=== PATIENT | male | born 1955 | race Caucasian/White ===

== ENCOUNTER → 2016-10-10 | Outpatient (CLI) | payer OTHER ==
[~2016-10-10] MED LIST: ACETAMINOPHEN325 M1 PO; ALBUTEROL2.5 MG/31 INH; AMOXICILLIN 50500 M1 PO; ASPIRIN325 PO; BROVANA15 MCG/2 M INH; CARISOPRODOL 3350 MG PO; COLACE100 MG PO; FUROSEMIDE 40 M40 M1 PO; MICARDIS HCT 81 EAC1 PO; POLYOX WSR-3011 GM PO; PREDNISONE 10 M10 M1; PROAIR HFA8.5 GM INH; PULMICORT0.5 MG/2 M INH; VICODIN 5-5001 EACH PO; ZOCOR40 MG PO
== END ==
LOC: RAD 14:28
DX: J44.9 Chronic obstructive pulmonary disease, unspecified (principal); J98.11 Atelectasis; I51.7 Cardiomegaly

== ENCOUNTER → 2016-12-17 | Outpatient (CLI) | payer OTHER | LOC: RAD 12:40 | DX: I43 Cardiomyopathy in diseases classified elsewhere (principal); R06.02 Shortness of breath ==

== ENCOUNTER 2017-05-20 20:19 | Emergency (ER) | payer OTHER ==
[~2017-05-20] VITALS: Ht 170.2 cm; Wt 192.8 kg
== END 2017-05-20 23:32 | disposition home or self-care (01) ==
LOC: ER 20:19
DX: S91.112A Laceration without foreign body of left great toe without damage to nail, initial encounter (principal); I10 Essential (primary) hypertension; E78.5 Hyperlipidemia, unspecified; F17.210 Nicotine dependence, cigarettes, uncomplicated; F10.99 Alcohol use, unspecified with unspecified alcohol-induced disorder; W23.0XXA Caught, crushed, jammed, or pinched between moving objects, initial encounter; Y93.01 Activity, walking, marching and hiking; Y92.098 Other place in other non-institutional residence as the place of occurrence of the external cause; Y99.8 Other external cause status

== ENCOUNTER → 2017-09-18 | Outpatient (CLI) | payer OTHER ==
--- NOTE | ~2017-09-18 | 2DMMODE ---
[facility] [address] [place] [address] 2 D/M-MODE ECHOCARDIOGRAM Name: YOANAWES Milton Room #: REG CL [facility]#: [id number] Admission: 09/18/17 Attend Phys: Gary Beaver MD Discharge: Date of : 53 Date of Service: 09/18/17 1445 Report #: [id number] THIS REPORT FOR: //name// APPROVED REPORT Study performed: 09/18/2017 13:14:56 EXAM: Comprehensive 2D, Doppler, and color-flow Echocardiogram Patient Location: Echo lab Status: routine BSA: 2.74 BP: 147/81 mmHg Other Information Study Quality: Technically Difficult/Technically Limited Technically limited study due to body habitus. Unable to start IV to administer Optison. Indications COPD Hypertension/HDD 2D Dimensions RVDd: 31.99 mm LVEF(%): 51.14 (>50%) IVSd: 17.02 (7-11mm) LVOT Diam: 21.50 (18-24mm) LVDd: 48.40 mm PWd: 17.13 (7-11mm) Ascending Ao: 36.49 (22-36mm) LVDs: 35.76 (25-40mm) Aortic Root: 33.21 mm IVC: 27.00 mm Crowley's LVEF: 51.14 % Volumes Left Atrial Volume (Systole) Single Plane 4CH: 52.12 mL Single Plane 2CH: 70.94 mL LA ESV Index: 25.00 mL/m2 Aortic Valve AoV Peak Tyrese.: 1.31 m/s AO Peak Gr.: 6.82 mmHg LVOT Max P.93 mmHg LVOT Max V: 0.86 m/s SUZANNE Vmax: 2.38 cm2 Mitral Valve [facility] [address] [place] [address] 2 D/M-MODE ECHOCARDIOGRAM Name: YOANAWES Milton Room #: REG [facility]#: [id number] Admission: 09/18/17 Attend Phys: Gary Beaver MD Discharge: Date of : 53 Date of Service: 09/18/17 1445 Report #: [id number] MV Decel. Time: 198.82 ms MV E Max Tyrese.: 1.32 m/s IVRT: 87.66 ms Pulmonary Valve PV Peak Tyrese.: 0.94 m/s PV Peak Gr.: 3.56 mmHg Tricuspid Valve RAP Estimate: 10.00 mmHg Left Ventricle The left ventricle is normal size. Moderate concentric left ventricular hypertrophy. The left ventricular systolic function appears grossly normal. LVEF is >55%. This study is not technically sufficient to allow evaluation of the LV diastolic function due to atrial fibrillation. Right Ventricle The right ventricle is normal size. The right ventricular systolic function is normal. Atria The left atrium size is normal. Right atrium is mildly dilated. Aortic Valve The aortic valve is not well visualized. No aortic regurgitation is visualized. There is no aortic valvular stenosis. Mitral Valve The mitral valve is normal in structure. Trace to mild mitral regurgitation. No evidence of mitral valve stenosis. Tricuspid Valve The tricuspid valve is normal in structure. Trace tricuspid regurgitation. Unable to assess PA pressure. Pulmonic Valve Pulmonic valve is not well visualized. Great Vessels The aortic root is normal in size. IVC is dilated and collapses >50% with inspiration. Pericardium There is no pericardial effusion. [facility] [place] [address] 2 D/M-MODE ECHOCARDIOGRAM Name: WES LEES Room #: REG [facility]#: [id number] Admission: 09/18/17 Attend Phys: Gary Beaver MD Discharge: Date of : 53 Date of Service: 09/18/171444 Report #: [id number] <Conclusion> Technically difficult study The left ventricle is normal size. Moderate concentric left ventricular hypertrophy. The left ventricular systolic function appears grossly normal. The right ventricle is normal size. The left atrium size is normal. There is no aortic valvular stenosis. Trace to mild mitral regurgitation. <ELECTRONICALLY SIGNED> By: Gary Beaver MD 09/18/17 1445 44 1445 Gary Beaver MD /INF
== END ==
LOC: CV 07:49
DX: I51.7 Cardiomegaly (principal); I10 Essential (primary) hypertension; J44.9 Chronic obstructive pulmonary disease, unspecified

== ENCOUNTER → 2018-10-07 | Outpatient (CLI) | payer OTHER | LOC: RAD 15:38 | DX: I51.7 Cardiomegaly (principal); M47.814 Spondylosis without myelopathy or radiculopathy, thoracic region ==